=== PATIENT | female | born 1990 | race Two or more races ===

== ENCOUNTER → 2020-07-29 08:00 | Outpatient (CLI) | payer OTHER | END | disposition home or self-care (01) | LOC: EDSTATUS 08:00 → LAB 08:00 → CIR.AMB 08-05 07:00 → EDSTATUS 08-05 08:00 | PROVIDERS: ATTEND Plastic Surgery | DX: E66.01 Morbid (severe) obesity due to excess calories (principal); Z20.828 Contact with and (suspected) exposure to other viral communicable diseases ==